=== PATIENT | female | born 1975 | race Caucasian/White ===

== ENCOUNTER 2021-01-18 20:29 | Emergency (ER) | payer BC, SELFPAY ==
--- NOTE | ~2021-01-18 | CT_ITS ---
EXAMINATION: CT brain wo con INDICATION: Transient alteration of awareness COMPARISON: None TECHNIQUE: Standard unenhanced head CT. The dose-length product (DLP) was 605.33 mGy-cm. The mA was a djusted according to patient size. Iterative reconstruction technique was employed. FINDINGS: There is no intracranial hemorrhage, acute infarction, or abnormal mass lesion. The ventric les are normal. There is no abnormal mass effect or midline shift. The arellano-white matter differentiat ion is normal. The basal cisterns are patent. The orbits are normal. There is mild mucosal thickening of the paranasal sinuses. IMPRESSION: 1. No acute intracranial abnormality. Reviewed, dictated and finalized at location B.
[2021-01-18 20:36] VITALS: BP 132/90; PULSE 81; RESP 18; TEMP 36.8; O2SAT 100
--- NOTE | 2021-01-18 20:36 | ECG_ITS ---
Measurements Intervals [place] Rate: 76 P: 79 MD: 148 QRS: 86 QRSD: 85 T: 80 QT: 364 QTc: 409 Interpretive Statements SINUS RHYTHM ATRIAL PREMATURE COMPLEX BASELINE ARTIFACT- AVR, AVL, AVF, V2 BORDERLINE ECG Electronically Signed On 01-19-2021 6:16:36 CDT by Luiz Godoy D.O.
[2021-01-18 20:53] LABS: Basophils Percent Auto 0.6 % (0.2-1.2); Eosinophils Absolute Auto 0.4 K/mm3 (0-0.3); Hematocrit 40.1 % (37.0-47.0); Hemoglobin 13.5 g/dL (12.0-15.0); Immature Granulocyte Absolute 0.02 K/mm3 (0.00-0.031); Immature Granulocyte Percent A 0.3 % (0-0.5); Lymphocytes Absolute Auto 1.53 K/mm3 (0.9-3.2); Mean Corpuscular HGB Conc 33.7 g/dl (32-36); Mean Corpuscular Hemoglobin 30.9 pg (26-34); Mean Corpuscular Volume 91.8 fl (80-100); Mean Platelet Volume 9.5 fl (7.4-10.4); Monocytes Absolute Auto 0.5 K/mm3 (0.1-0.6); Monocytes Percent Auto 8.3 % (2.6-8.5); Neutrophils Absolute Auto 3.9 K/mm3 (1.3-6.7); Neutrophils Percent Auto 60.8 % (45.5-73.1); Platelet Count Result 273 k/mm3 (150-375); Red Blood Count 4.37 M/mm3 (4.2-5.4); White Blood Count 6.4 K/mm3 (4.5-10.0)
[2021-01-18 21:03] LABS: Anion Gap 8 mmol/L (8-16); Blood Urea Nitrogen 16 mg/dL (7-17); Calcium 9.7 mg/dL (8.4-10.2); Carbon Dioxide 28 mmol/L (22-30); Chloride 102 mmol/L (98-107); Estimated CRCL calculation 57 ml/min; Estimated Glomerular Filt Rate > 60; Glucose 102 mg/dL (65-110); Potassium 3.5 mmol/L (3.4-5.0); Sodium 138 mmol/L (137-145)
[2021-01-18 21:06] VITALS: BP 132/85; PULSE 81; RESP 17; TEMP 36.9; O2SAT 100
--- NOTE | 2021-01-18 22:37 | ED.GENADULT ---
HPI - General Adult General Chief complaint: Syncope Stated complaint: possible syncopal episode Time Seen by Provider: 01/18/21 21:11 History of Present Illness HPI narrative: Patient 45-year-old female presents the emergency department with chief complaint of syncope and dizziness. Patient reports that today she had several episodes where she started feeling dizzy the patient states that she really cannot describe it that well other than that she felt strange and dizzy. Patient denies rotational symptoms reports that there may be like a lightheaded component of it patient reports she had several episodes of this and then ultimately had an episode where she started having symptoms and then fell striking her head. Patient states that now she feels better she feels less foggy at this point patient denies vomiting denies diarrhea Related Data Home Medications Medication Instructions Recorded Confirmed albuterol mcg INHALATION 01/18/21 Allergies Allergy/AdvReac Type Severity Reaction Status Date / Time cinnamon Allergy Anaphylaxis Verified 01/18/21 20:39 Review of Systems Review of Systems: Narrative: A 10 system review of systems was completed on the patient and is negative except for what is stated in the HPI. Nursing and ancillary documentation was reviewed. Exam Narrative: Exam Narrative: GENERAL: Well-appearing, well-nourished, and in no acute distress. HEAD: Normocephalic, atraumatic. EYES: PERRLA and EOMI. ENT: Nares clear, no rhinorrhea or epistaxis. Mucous membranes moist. NECK: Supple. CHEST: Clear to auscultation. No respiratory distress. HEART: Regular rate and rhythm. No murmur heard. Normal peripheral pulses. ABDOMEN: Soft, nontender, nondistended, normal active bowel sounds. EXTREMITIES: Normal range of motion. No edema. SKIN: Warm, dry, no rash. NEURO: No focal deficits. Alert and oriented x3. PSYCH: Normal mood and affect. Course Vital Signs Vital signs: Vital Signs Temperature 36.8 C 01/18/21 20:36 Pulse Rate 81 01/18/21 20:36 Respiratory Rate 18 01/18/21 20:36 Blood Pressure 132/90 01/18/21 20:36 Pulse Oximetry 100 01/18/21 20:36 Temperature 36.9 C 01/18/21 21:06 Pulse Rate 77 01/19/21 00:20 Respiratory Rate 18 01/19/21 00:20 Blood Pressure 121/81 01/19/21 00:20 Pulse Oximetry 100 01/19/21 00:20 Medical Decision Making Vital Signs Vital Signs: Vital Signs Temperature 36.8 C 01/18/21 20:36 Pulse Rate 81 01/18/21 20:36 Respiratory Rate 18 01/18/21 20:36 Blood Pressure 132/90 01/18/21 20:36 Pulse Oximetry 100 01/18/21 20:36 Temperature 36.9 C 01/18/21 21:06 Pulse Rate 77 01/19/21 00:20 Respiratory Rate 18 01/19/21 00:20 Blood Pressure 121/81 01/19/21 00:20 Pulse Oximetry 100 01/19/21 00:20 Lab Data Result diagrams: 01/18/21 20:45 01/18/21 20:45 Labs: Lab Results 01/18/21 01/18/21 01/18/21 Range/Units 20:45 20:45 22:33 WBC 6.4 (4.5-10.0) K/mm3 RBC 4.37 (4.2-5.4) M/mm3 Hgb 13.5 (12.0-15.0) g/dL Hct 40.1 (37.0-47.0) % MCV 91.8 (80-100) fl MCH 30.9 (26-34) pg MCHC 33.7 (32-36) g/dl RDW 12.0 (11.5-14.5) % Plt Count 273 (150-375) k/mm3 MPV 9.5 (7.4-10.4) fl Immature Gran % (Auto) 0.3 (0-0.5) % Neut % (Auto) 60.8 (45.5-73.1) % Lymph % (Auto) 24.0 (18.3-44.2) % [place] % (Auto) 8.3 (2.6-8.5) % Eos % (Auto) 6.0 H (0-4.4) % Baso % (Auto) 0.6 (0.2-1.2) % Lymph # (Auto) 1.53 (0.9-3.2) K/mm3 [place] # (Auto) 0.5 (0.1-0.6) K/mm3 Eos # (Auto) 0.4 H (0-0.3) K/mm3 Baso # (Auto) 0.0 (0.0-0.1) K/mm3 Abs Immat Gran (auto) 0.02 (0.00-0.031) K/mm3 Absolute Neuts (auto) 3.9 (1.3-6.7) K/mm3 Absolute Nucleated RBC 0.0 (0.0-0.012) K/mm3 Nucleated RBC % 0.0 (0.0-0.2) % Sodium 138 (137-145) mmol/L Potassium 3.5 (3.4-5.0) mmol/L Chloride 102 (98-107) mmol/L Ca
[2021-01-18 22:47] LABS: Add Urine Microscopic? YES; Appearance Urine Cloudy (Clear); Bacteria Urine Trace /hpf; Bilirubin Urine Negative (Negative); Blood Urine Negative (Negative); Color Urine Yellow (Yellow); Glucose Urine UA Negative (Negative); Ketones Urine Negative (Negative); Leukocyte Esterase Ur Negative LEU/UL (Negative); Mucus Urine Rare /lpf; Nitrate Urine Negative (Negative); Protein Urine Negative (Negative); RBC Urine 0-2 /hpf (0-2); Squamous Epithelial Cell Urine Many /hpf (Few); Urobilinogen Urine Negative mg/dL (<2.0); WBC Urine 0-3 /hpf
[2021-01-18 22:51] VITALS: BP 121/84; PULSE 78; RESP 19; O2SAT 100
[2021-01-18] MEDS: SODIUM CHLORIDE 0.9% IV 1,000 ML 999 ML IV CONT (22:54)
[2021-01-18 22:55] VITALS: BP 115/77; PULSE 71
[2021-01-18 22:56] VITALS: BP 120/73; PULSE 82
[2021-01-18 22:57] VITALS: BP 131/95; PULSE 90
[2021-01-18 23:09] LABS: Lactic Acid Reflex 0.9 mmol/L (0.7-2.1); Magnesium 1.9 mg/dL (1.6-2.3)
[2021-01-18 23:22] LABS: Troponin I < 0.012 ng/mL (0.000-0.034)
[2021-01-19 00:20] VITALS: BP 121/81; PULSE 77; RESP 18; O2SAT 100
[2021-01-19 00:53] VITALS: BP 114/78; PULSE 81; RESP 19; O2SAT 100
== END 2021-01-19 00:55 | disposition home or self-care (01) ==
PROVIDERS: Family Medicine; Emergency Provider Emergency Medicine
DX: R55 Syncope and collapse (principal); R42 Dizziness and giddiness; I49.1 Atrial premature depolarization
CPT/HCPCS: 36415; 70450; 80048; 81001; 81025; 83605; 83735; 84484; 85025; 93005; 96361; 96365; 99284; J7030

== ENCOUNTER 2023-01-03 11:06 | Emergency (ER) | payer OTHER, SELFPAY ==
--- NOTE | 2023-01-03 11:12 | ED.EYEPROB ---
HPI - Eye Problem General Chief complaint: Eye Problems Stated complaint: pain & irritation in both eyes for 2 weeks Time Seen by Provider: 01/03/23 11:15 Source: patient and RN notes reviewed History of Present Illness HPI Narrative: Patient is a 47-year-old female who presents to urgent care with complaints of bilateral eye irritation and itchiness. Patient denies any vision changes or pain. States that this is been ongoing for approximately 2 weeks. Patient states that she was on the Polytrim drops for approximately 1 week. Patient states she talked to her doctor on Sunday and was told to go to urgent care. Patient is unaware that her provider called and tobramycin drops and has not been using them. Patient denies any foreign body to the eyes or injury. No other acute complaints. No acute distress noted. Patient aware of the plan of care. Some parts of this dictation were generated by voice recognition software and may contain typographical and/or grammatical inaccuracies. Related Data Home Medications Medication Instructions Recorded Confirmed montelukast 10 mg tablet 10 mg PO DAILY 01/03/23 01/03/23 polymyxin B sulfate 10,000 1 drp ophthalmic (eye) DIRECTED 01/03/23 01/03/23 unit-trimethoprim 1 mg/mL eye drops tobramycin 0.3 % eye drops 1 drp EACH EYE DIRECTED 01/03/23 01/03/23 Allergies Allergy/AdvReac Type Severity Reaction Status Date / Time cinnamon Allergy Anaphylaxis Verified 01/03/23 11:10 Review of Systems Review of Systems: CONSTITUTIONAL: Denies fever, chills, or sweats. EYES: Reports bilateral eye irritation/redness/itchiness without pain or vision change ENT: Denies rhinorrhea, congestion, sore throat, or otalgia. CARDIOVASCULAR: Denies chest pain, palpitations, or edema. RESPIRATORY: Denies cough or dyspnea. GASTROINTESTINAL: Denies abdominal pain, nausea, vomiting, or diarrhea. GENITOURINARY: Denies dysuria or hematuria. SKIN: Denies rash or itching. MUSCULOSKELETAL: Denies back pain, joint pain, or myalgia. NEUROLOGIC: Denies headache, numbness, or weakness. All other systems reviewed are negative, except as documented in HPI. PMFSH Comments At the time of my signature, I reviewed and agree with the nursing past medical, surgical, social, and family history. There is no relevant family history pertinent to the patient complaint. Exam Narrative: GENERAL: This is a well-nourished, well-developed patient, in no apparent distress. HEAD: normocephalic, atraumatic. EYES: PERRL. Bilateral injected erythema to conjunctiva with erythema to bilateral sclera and notable subconjunctival hemorrhage to the outer canthus of the left. Vision is grossly intact. EARS: External ears normal NOSE: External nose normal with no obvious nasal discharge, nares without redness, no rhinorrhea. THROAT: Mucous membranes moist NECK: Neck supple, SKIN: warm, intact with no suspicious lesions or rash, good texture and turgor. NEURO: awake, alert, and oriented to person, place and time. There were no obvious focal neurologic abnormalities. EXTREMITIES: No clubbing, cyanosis, or edema. Course Course Level of Care: Express Care Visit Vital Signs Vital signs: Vital Signs Temperature 97.2 F L 01/03/23 11:20 Pulse Rate 101 H 01/03/23 11:20 Respiratory Rate 16 01/03/23 11:20 Blood Pressure 127/82 01/03/23 11:20 Pulse Oximetry 97 01/03/23 11:20 Temperature 97.2 F L 01/03/23 11:21 Pulse Rate 101 H 01/03/23 11:21 Respiratory Rate 16 01/03/23 11:21 Blood Pressure 127/82 01/03/23 11:21 Pulse Oximetry 97 01/03/23 11:21 Reviewed MDM - Eye Problem MDM Narrative Medical decision making narrative: Advised patient to stop using the Polytrim eyedrops and switch to the tobramycin which was called in by her provider on Sunday to her local pharmacy. Advised patient to do eye wash twice per day prior to the prescription eyedrops. If you have any increase in irritation associa
[2023-01-03 11:20] VITALS: BP 127/82; PULSE 101; RESP 16; TEMP 36.2; O2SAT 97
[2023-01-03 11:21] VITALS: BP 127/82; PULSE 101; RESP 16; TEMP 36.2; O2SAT 97
== END 2023-01-03 11:32 | disposition home or self-care (01) ==
PROVIDERS: Emergency Provider Nurse Practitioner Family; PCP Family Medicine
DX: H57.13 Ocular pain, bilateral (principal); J45.909 Unspecified asthma, uncomplicated
CPT/HCPCS: 99212; G0463

== ENCOUNTER 2023-02-15 13:00 | Outpatient (RCR) | payer OTHER, SELFPAY ==
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
--- NOTE | 2022-12-08 15:23 | OPREHPOC ---
Outpatient Therapy Plan of Care This is a Multidisciplinary Plan of Care that may contain components documented by all disciplines (PT, OT, and ST.) PT Problem 1 PT Problem #1 Knowledge Deficit PT Goal 1 Goal 1* pt indep with home exercise program PT Problem 2 PT Problem #2 Pain PT Goal 1 Goal 1* pt report pain at worst rating of 5/10 2* pt not using the L arm sling 3* pt report with sleeping, awaken 1x/ night due to pain PT Problem 3 PT Problem #3 Impaired Range of Motion PT Goal 1 Goal increase active ROM to increase activity level and functional use of L arm: active ROM L shoulder in standing 1* flexion 120' 2* abduction 110' 3* IR- reach behind back, fingers to distal edge of scapula 4* ER- reaching to back of head- palm to back of head cervical active motion in sittin* rotation R 50' 6* rotation L 50' 7* extension 10' 8* flexion 50' PT Problem 4 PT Problem #4 Impaired Strength PT Goal 1 Goal 1* pt stand with cervical neutral position- no side bend R or rotation L pt able to perform 5 reps in standing of L shoulder active motions, through available ROM: 2* flexion 3* abduction 4* IR 5* ER pt report she has returned to: 6* working 8 hours 7* cooking light meals 8* light home cleaning ST Problem 1 ST Problem #[address] Goal 1 Goal May be related to: *Aphasia *Dysarthria Possibly evidenced by:
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
--- NOTE | 2023-01-05 12:52 | STOPDC ---
Assessment and note entered by Barbara Hand BOAT ENGINE MECHANIC Evaluation Information Assessment Status Evaluation Reported Pain Level Pain Score 0: Self Report Pain Score 4: Self Report Pain Score 5: Self Report Assessment ST Clinical Summary SPEECH THERAPY TREATMENT SESSION AND DISCHARGE SUMMARY Patient was seen for an initial Speech Therapy evaluation on 12/08 and was seen only two additional sessions before today due to patient cancelling for various reasons and scheduling conflicts. Today she reports that she is not longer having memory or word-finding issues but occasionally has episodes of saying the correct word but producing an incorrect sound in the word (possible paraphasia, possible programming issue). Of not, she has never exhibited this behavior or word substitution in front of this speech pathologist in any of our sessions. Today the portions of the Recall section of the SCATBI, The Scales of Cognitive Ability for Traumatic Brain Injury, was re-administered to assess progress. Patient's skills were judged to be within normal limits throughout this section. Patient performed as follows: --Recall of pictured items given card with picture and immediately asked to find it in a scene or a sign given a choice of signs: Not re-tested today (initially 6/6). --Recall of names of pictured objects, common to less common: 8/8 items (initially 7/8 items). --Recall of 3, then 5 unrelated words, immediately: Not re-tested (initially 2/2 correct). --Recall of 3, then 5 unrelated words, after 30 second delay: 2/2 (initially 1/2 correct). --Recall of specific words in a story when instructed to recall those words: 6/8 (initially 5 /8 words). --Divergent Naming: Not re-tested (initially named 12, 13 items, respectively/possible 14-15 items) . --Follow complex instructions: Not re-tested ( initially 2/2 points). --Recall of information in a complex paragraph, with one reasoning
--- NOTE | 2023-01-05 13:02 | STOPDC ---
Assessment and note entered by Barbara Hand BAND SCROLL SAW OPERATOR Evaluation Information Assessment Status Evaluation Reported Pain Level Pain Score 0: Self Report Pain Score 4: Self Report Pain Score 5: Self Report Assessment ST Clinical Summary SPEECH THERAPY TREATMENT SESSION AND DISCHARGE SUMMARY Patient was seen for an initial Speech Therapy evaluation on 12/08 and was seen four additional sessions before today due to patient cancelling for various reasons and scheduling conflicts. Today she reports that she is not longer having memory or word-finding issues but occasionally has episodes of saying the correct word but producing an incorrect sound in the word (possible paraphasia, possible programming issue). Of not, she has never exhibited this behavior or word substitution in front of this speech pathologist in any of our sessions. Today the portions of the Recall section of the SCATBI, The Scales of Cognitive Ability for Traumatic Brain Injury, was re-administered to assess progress. Patient's skills were judged to be within normal limits throughout this section. Patient performed as follows: --Recall of pictured items given card with picture and immediately asked to find it in a scene or a sign given a choice of signs: Not re-tested today (initially 6/6). --Recall of names of pictured objects, common to less common: 8/8 items (initially 7/8 items). --Recall of 3, then 5 unrelated words, immediately: Not re-tested (initially 2/2 correct). --Recall of 3, then 5 unrelated words, after 30 second delay: 2/2 (initially 1/2 correct). --Recall of specific words in a story when instructed to recall those words: 6/8 (initially 5/8 words). --Divergent Naming: Not re-tested (initially named 12, 13 items, respectively/possible 14-15 items) . --Follow complex instructions: Not re-tested (initially 2/2 points). --Recall of information in a complex paragraph, with one reasoning ques
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
== END 2023-02-22 15:18 | disposition home or self-care (01) ==
LOC: ANHPT 13:00
PROVIDERS: Visit Provider Clinical Nurse Specialist Adult Health
DX: S06.9X9D Unspecified intracranial injury with loss of consciousness of unspecified duration, subsequent encounter (principal)
CPT/HCPCS: 92507; 92523; 97014; 97035; 97110; 97112; 97113; 97140; 97162; 97165; 97761; G0283

== ENCOUNTER 2023-08-25 13:00 | Emergency (ER) | payer OTHER, SELFPAY ==
--- NOTE | ~2023-08-25 | XR_ITS ---
EXAMINATION: XR chest 2V 08/25/2023 13:47 INDICATION: Left lower lobe crackles. Shortness of breath. PROCEDURE: 2 view chest COMPARISON: No prior studies FINDINGS: The lungs are clear. The cardiomediastinal silhouette is within normal limits. There are no pleural effusions. There is no pneumothorax suspected. IMPRESSION: 1: NO ACUTE CARDIOPULMONARY DISEASE. Reviewed, dictated and finalized at location A. YSIS ANALYST
--- NOTE | 2023-08-25 13:24 | ED.URI ---
HPI - URI/Sore Throat General Chief Complaint: Upper Respiratory Infection Stated Complaint: BREATHING ISSUES Time Seen by Provider: 08/25/23 13:24 Source: patient Mode of arrival: ambulatory Limitations: no limitations History of Present Illness HPI Narrative: Linette is a 47-year-old female patient presenting to the clinic today with complaints cough and shortness of breath that just started this morning. Used up the last of her albuterol inhaler last night. States that she does have a history of asthma. Went to the pharmacy today to get a refill on her inhaler. Reports that she was very short of breath. Is able to speak a few words and then stop to catch her breath prior to finishing her since. Is sitting in a tripod position. SpO2 is 98% on room air. No obvious retractions but does have a increased work to breathe. Cough is nonproductive. MD elicited complaint: cough and other (Shortness of breath) Related Data Home Medications Medication Instructions Recorded Confirmed montelukast 10 mg tablet 10 mg PO DAILY 01/03/23 01/03/23 polymyxin B sulfate 10,000 1 drp ophthalmic (eye) DIRECTED 01/03/23 01/03/23 unit-trimethoprim 1 mg/mL eye drops tobramycin 0.3 % eye drops 1 drp EACH EYE DIRECTED 01/03/23 01/03/23 albuterol sulfate 90 mcg/actuation inhalation 08/25/23 aerosol inhaler Allergies Allergy/AdvReac Type Severity Reaction Status Date / Time cinnamon Allergy Anaphylaxis Verified 08/25/23 13:27 Review of Systems Review of Systems: Pertinent positives per HPI. Patient denies any fever, chills, rash, headache, visual changes, dizziness, chest pain, palpitations, nausea, vomiting, diarrhea, constipation, abdominal pain, or any urinary issues. PMFSH Comments At the time of my signature, I reviewed and agree with the nursing past medical, surgical, social, and family history. There is no relevant family history pertinent to the patient complaint. Exam Narrative: General: Well-developed, well nourished, in no apparent distress Head: Normocephalic, atraumatic Eyes: Pupils equally round and reactive to light bilaterally, EOM intact, sclera and conjunctive clear, no discharge, lids normal Ears: TMs intact and clear, ear canals clear, no drainage, grossly hearing normal. Nose: Nares patent, no discharge, no inflammation, no sinus tenderness. Mouth: Oral pharynx without lesions or masses, good dentition, MMM. Neck: Supple, trachea midline, no enlargement of anterior or posterior cervical nodes, no thyroid masses or goiter palpable. Cardio: Regular rate and rhythm, s1 and s2 normal, no murmur appreciated. Resp: Left lower lobe crackles, no rhonchi, wheezing or rubs Course Course Emergency Course: Portions of this record may have been created with voice recognition software. Level of Care: [facility] Visit Vital Signs Vital signs: Vital signs reviewed MDM - URI/Sore Throat MDM Narrative Medical decision making narrative: At the time of visit patient is resting comfortably on the exam table. Patient appears to be nontoxic. Diagnostics: Chest x-rays negative for any sign pneumonia Medications given: DuoNeb hand-held neb treatment Plan: I suspect patient has bronchitis. DuoNeb treatment was given in the clinic and this improved patient's shortness of breath. Prescription for prednisone was sent to the pharmacy. Supportive measures were discussed with the patient and they voiced understanding discharge instructions and agrees to treatment plan. Return precautions reviewed Differential Diagnosis Differential diagnosis: Likely upper respiratory infection, otitis media, sinusitis, viral infection, bronchitis, influenza, pharyngitis and other (COVID) Imaging Data Radiologist's impression: ITS Impressions Chest X-Ray 08/25/23 13:55 IMPRESSION: 1: NO ACUTE CARDIOPULMONARY DISEASE. Discharge Plan Discharge Clinical Impression: Bronchitis Patie
[2023-08-25 13:29] VITALS: BP 113/88; PULSE 99; RESP 16; TEMP 37; O2SAT 98
[2023-08-25] MEDS: ALBUTEROL SULFATE NEB 2.5 MG/3 ML INH INHALATION (13:48)
[2023-08-25] MEDS: IPRATROPIUM BR 0.02% INH SOLN 0.5 MG/2.5 ML VIAL INHALATION (13:50)
[2023-08-25 14:19] VITALS: PULSE 108; O2SAT 96
[2023-08-25 16:32] VITALS: PULSE 108; O2SAT 96
== END 2023-08-25 14:20 | disposition home or self-care (01) ==
PROVIDERS: Emergency Provider Nurse Practitioner Family; PCP Family Medicine
DX: J40 Bronchitis, not specified as acute or chronic (principal); J45.909 Unspecified asthma, uncomplicated
CPT/HCPCS: 71046; 94640; 99213; G0463

== ENCOUNTER 2023-09-25 11:47 | Emergency (ER) | payer OTHER, SELFPAY ==
[2023-09-25 11:52] VITALS: BP 123/82; PULSE 98; RESP 16; TEMP 37.5; O2SAT 100
--- NOTE | 2023-09-25 12:14 | ED.URI ---
HPI - URI/Sore Throat General Chief Complaint: Upper Respiratory Infection Stated Complaint: Sore Throat/Cough/Congestion Source: patient and RN notes reviewed Mode of arrival: ambulatory Limitations: no limitations History of Present Illness HPI Narrative: 47-year-old female with hx asthma presented for complaint of sinus congestion and pressure, painful cough, and body aches for 11 days. She states she felt better for couple of days and then developed fevers and chills last night. Using albuterol inhaler more frequently over the past few days, and throughout the night. Took antihistamine for a few days without relief so has not been taking anything else. Denies sob, wheezing, n/v/d. MD elicited complaint: cough Related Data Home Medications Medication Instructions Recorded Confirmed albuterol sulfate 90 mcg/actuation 90 mcg inhalation USEASDIRECTD 08/25/23 08/25/23 aerosol inhaler Allergies Allergy/AdvReac Type Severity Reaction Status Date / Time cinnamon Allergy Anaphylaxis Verified 09/25/23 12:13 Review of Systems Review of Systems: CONSTITUTIONAL: Endorses malaise, chills, sweats, fever EYES: Denies visual changes, redness, or discharge ENT: Reports rhinorrhea, congestion, sinus pain, denies otalgia, sore throat CARDIOVASCULAR: Denies chest pain, palpitations, edema RESPIRATORY: Reports cough, post nasal drainage. Denies dyspnea GASTROINTESTINAL: Denies abdominal pain, nausea, vomiting, diarrhea SKIN: Denies rash or itching MUSCULOSKELETAL: Endorses myalgia PMFSH Past Medical History Medical History (Updated 09/25/23 @ 12:21 by Bushra Kramer, DIRECTOR EXTERNAL COMMUNICATIONS) Asthma Exam Narrative: GENERAL: mildly Ill-appearing, nontoxic no acute distress. EYES: PERRLA, conjunctivae clear ENT: Mucous membranes moist. TM pearly arellano with dull light reflex bilaterally; no tragal tenderness. Oropharynx mildly erythematous without lesions or exudate, no drooling, no hoarseness, no trismus, uvula midline. No tripod positioning, muffled voice, soft palate or pharyngeal wall bulging NECK: Supple. No lymphadenopathy CHEST: Clear to auscultation, breath sounds equal. No wheezing, rhonchi, rales, or stridor. No respiratory distress, speaks in full sentences. Cough is frequent, moist, nonproductive. HEART: Regular rate and rhythm. No murmur heard. SKIN: Warm, dry, no rash. NEURO: Alert and oriented x3. PSYCH: Normal mood and affect Course Course Emergency Course: Patient is aware of diagnosis, understands and agrees to treatment plan. Anticipatory guidance given. Patient agrees to follow-up as directed and is aware of reasons to seek care at the emergency department. Portions of this record may have been created with voice recognition software Level of Care: [facility] Visit Vital Signs Vital signs: Vital Signs Temperature 99.5 F 09/25/23 11:52 Pulse Rate 98 09/25/23 11:52 Respiratory Rate 16 09/25/23 11:52 Blood Pressure 123/82 09/25/23 11:52 Pulse Oximetry 100 09/25/23 11:52 Oxygen Delivery Room Air 09/25/23 11:52 Temperature 99.5 F 09/25/23 11:52 Pulse Rate 98 09/25/23 11:52 Respiratory Rate 16 09/25/23 11:52 Blood Pressure 123/82 09/25/23 11:52 Pulse Oximetry 100 09/25/23 11:52 Oxygen Delivery Room Air 09/25/23 11:52 reviewed MDM - URI/Sore Throat MDM Narrative Medical decision making narrative: Discussed physical exam findings c/w sinusitis. Will send abx along with steroid for hx asthma. Advised supportive measures and signs/symptoms to go to the ER. Pt is appropriate for outpt treatment and f/u. Differential Diagnosis Differential diagnosis: Likely upper respiratory infection, otitis media, sinusitis, viral infection, bronchitis and pharyngitis Discharge Plan Discharge Clinical Impression: Sinusitis Patient Disposition: Home, Self-Care Condition: Stable Instructions: Antibiotic Form, Sinusitis (ED), Acute Bronchitis (ED) Additional Ins
== END 2023-09-25 12:19 | disposition home or self-care (01) ==
PROVIDERS: Emergency Provider Nurse Practitioner Family; PCP Family Medicine
DX: J32.9 Chronic sinusitis, unspecified (principal); J45.909 Unspecified asthma, uncomplicated
CPT/HCPCS: 99213; G0463

== ENCOUNTER 2023-10-08 08:10 | Emergency (ER) | payer OTHER, SELFPAY ==
--- NOTE | 2023-10-08 08:17 | ED.GENADULT ---
HPI - General Adult General Chief complaint: Shortness of Breath/Dyspnea Stated complaint: Trouble Breathing Time Seen by Provider: 10/08/23 08:28 Source: patient, RN notes reviewed and old records reviewed Mode of arrival: ambulatory Limitations: no limitations History of Present Illness HPI narrative: 47-year-old female to [facility] for complaint of shortness of breath and cough that began 2 nights ago. Patient endorses that she was seen [facility] recently for bronchitis and she feels it is returning. Patient denies tobacco use, being outdoors recently, or any known exposure to irritants. Patient denies any known drug allergies. Patient in no acute distress in triage. Patient able to speak in complete sentences. Respirations even and nonlabored. Able to control secretions. Related Data Home Medications Medication Instructions Recorded Confirmed albuterol sulfate 90 mcg/actuation 90 mcg inhalation USEASDIRECTD 08/25/23 10/08/23 aerosol inhaler Allergies Allergy/AdvReac Type Severity Reaction Status Date / Time cinnamon Allergy Anaphylaxis Verified 10/08/23 08:23 Review of Systems Review of Systems: All systems reviewed & are unremarkable except as noted in HPI and below Constitutional: Constitutional: Reports as per HPI, Denies body ache(s), Denies chills and Denies fever(s) Eyes: Eyes: Reports no additional eye complaints ENT: Reports system reviewed and no additional complaints, except as documented Cardiovascular: Cardiovascular: Reports no additional cardiovascular complaints, Denies chest pain and Denies dyspnea Respiratory: Respiratory: Reports as per HPI, Reports cough, Denies pain with cough, Reports dyspnea and Reports dyspnea on exertion Musculoskeletal: Musculoskeletal: Reports no additional musculoskeletal complaints Neurologic: Reports system reviewed and no additional complaints, except as documented Psychiatric: Psychiatric: Reports no additional psychiatric complaints PMFSH Past Medical History Medical History Asthma Comments At the time of my signature, I reviewed and agree with the nursing past medical, surgical, social, and family history. There is no relevant family history pertinent to the patient complaint. Exam Const: General: cooperative, healthy appearing, comfortable, no acute distress, alert and well nourished Nutritional Appearance: well nourished Orientation/consciousness: patient oriented x3 Limitations: no limitations HENMT: Head: normal to inspection Ears: external ears normal Face/Nose/Sinus: Normal external nose present, Normal nares present, normal facial exam, No erythema and No edema Face and sinus: normal facial exam, no erythema and no edema Mouth: Yes Normal oral and palatal mucosa present Throat: posterior oropharynx abnormal erythema Eyes: General: appearance normal, both eyes and all related structures Neck: Neck: normal visual inspection, full ROM and no meningeal signs Lymphatic: no lymphadenopathy noted and no lymphedema noted Chest: Chest palpation & inspection: normal inspection of the chest Resp: Effort & Inspection: normal respiratory effort, Actively coughing dry, no grunting, not labored, no nasal flaring, no pursed lip breathing, no respiratory distress, no retractions and no use of accessory muscles Auscultation: wheezes expiratory wheezes and right upper Cardio: Jugular venous distension: no JVD Rate: regular rate Rhythm: regular rhythm Back/Spine/Pelvis: Cervical Spine: cervical ROM normal Skin: General skin exam: normal color, no rashes or lesions noted and turgor normal Neuro: General: patient oriented x3, gait normal, moves all extremities and no meningeal signs Speech: normal speech Gait exam (Neuro): Normal gait present Extrem: General: normal to inspection, full ROM and capillary refill normal Psych: Appearance: grossly normal and well katia
[2023-10-08 08:28] VITALS: BP 129/87; PULSE 108; RESP 18; TEMP 37; O2SAT 99
[2023-10-08] MEDS: ALBUTEROL SULFATE NEB 2.5 MG/3 ML INH INHALATION (09:04)
[2023-10-08] MEDS: IPRATROPIUM BR 0.02% INH SOLN 0.5 MG/2.5 ML VIAL INHALATION (09:05)
[2023-10-08] MEDS: dexAMETHasone SOD PHOS INJ 10 MG/ML 1 ML VIAL IM (09:32)
== END 2023-10-08 09:42 | disposition home or self-care (01) ==
PROVIDERS: Emergency Provider Nurse Practitioner Family; PCP Physician Assistant
DX: J45.901 Unspecified asthma with (acute) exacerbation (principal)
CPT/HCPCS: 94640; 99213; G0463; J1100